=== PATIENT | male | born 1965 ===

== ENCOUNTER 2016-12-21 05:12 | Inpatient (IN) | payer OTHER ==
[~2016-12-21] VITALS: Ht 175.3 cm; Wt 93.0 kg
[2016-12-21] VITALS (12 sets, daily range): BP systolic 113–167; BP diastolic 71–95
[~2016-12-21 05:12] MED LIST: ASPIR 8181 MG ORAL; GABAPENTIN800 MG ORAL; HUMALOG100 UNIT/4 SUBQ; LANTUS SOL100 UNIT/1 SUBQ; LOSARTAN-HCTZ1 EAC2 ORAL; METFORMIN HCL1000 M3 PO; SIMVASTATIN20 MG ORAL; TENORMIN100 MG ORAL; TIZANIDINE HCL4 M2 ORAL
[2016-12-21] MEDS ORDERED: LR 1000ml 1,000 ML IVLG SCH (06:28)
[2016-12-21] MEDS ORDERED: Ketorolac 60mg Inj IV PRN (06:30)
[2016-12-21] MEDS ORDERED: Midazolam 2mg/2ml Inj IVP PRN (06:30)
[2016-12-21] MEDS ORDERED: Hydromorphone 0.5mg/0.5ml inj IVP PRN (06:30)
[2016-12-21] MEDS ORDERED: fentaNYL 100 mcg/2 mL IV PRN (06:30)
[2016-12-21] MEDS ORDERED: DiphenhydrAMINE 50mg/ml Inj IVP PRN (06:30)
[2016-12-21] MEDS ORDERED: oxyCODONE HCL/Acetaminophen 5/325mg ORAL PRN (06:30)
[2016-12-21] MEDS ORDERED: Atropine Inj 1mg/10ml Syr IV PRN (06:30)
[2016-12-21] MEDS ORDERED: Ketorolac 30mg Inj IV PRN (06:30)
[2016-12-21] MEDS ORDERED: Norco 5mg/325mg tab ORAL PRN (06:30)
[2016-12-21] MEDS ORDERED: Metoclopramide 10mg/2ml Inj IVP PRN ×2 (06:30→12:30)
[2016-12-21] MEDS ORDERED: Norco 7.5mg/325mg tab ORAL PRN (06:30)
[2016-12-21] MEDS ORDERED: LORazepam Inj 2mg/ml 1ml IV PRN (06:30)
[2016-12-21] MEDS ORDERED: Surgicel 4in x 8in TOPIC ONE (06:45)
[2016-12-21] MEDS ORDERED: Thrombin 5000 units TOPIC ONE (06:45)
--- NOTE | 2016-12-21 06:45 | Anethesia Preoperative Eval ---
Anesthesia Pre-op PMH/ROS General Date of Evaluation: Dec 21, 2016 Time of Evaluation: 07:11 Anesthesiologist: Marcelo ASA Score: ASA 3 Mallampati Score Class I : Soft palate, uvula, fauces, pillars visible Class II: Soft palate, uvula, fauces visible Class III: Soft palate, base of uvula visible Class IV: Only hard plate visible Mallampati Classification: Class II Surgeon: Kaitlynn/ Matthew Diagnosis: Back Pain Surgical Procedure: ALIF L4-5, L5-S1, PSF Anesthesia History: none Family History: no anesthesia problems Allergies: Uncoded Allergies: eggs (Allergy, Severe, gi upset, 12/21/16) Medications: see eMAR Past Medical History Cardiovascular: Reports: HTN, other - HL Endocrine: Reports: DM Other: obesity - BMI 32 PSxH Narrative: Colostomy, Umbilical Hernia repair Anesthesia Pre-op Phys. Exam Physician Exam Last Vital Signs Date Time Temp Pulse Resp B/P (MAP) Pulse Ox O2 Delivery O2 Flow Rate FiO2 12/21/16 05:44 97.9 72 18 130/83 97 Room Air Constitutional: NAD Neurologic: CN 2-12 intact Cardiovascular: RRR Respiratory: CTA Gastrointestinal: S/NT/ND Airway Exam Mallampati Score: Class II MO: limited ROM: limited Teeth: missing, intact Anesthesia Pre-op A/P Risk Assessment & Plan Assessment: ASA 3 Plan: Ga, BIS, Glidescope Status Change Before Surgery: No Pre-Antibiotics Dru Grams Ancef IV Given Within 1 Hr of Incision: Yes Time Given: 07:31 Maurisio Robertson MD Dec 21, 2016 06:45
[2016-12-21] MEDS ORDERED: Vancomycin 1gm inj IVPB ONE (06:46)
[2016-12-21] MEDS ORDERED: Lidocaine 1% Plain 30 ml INJ ONE ×2 (06:46→07:00)
[2016-12-21] MEDS ORDERED: Lidocaine 1% 10mg/ml/Epi 0.005mg/ml 30ml vial INJ ONE (06:46)
[2016-12-21] MEDS ORDERED: Heparin 5000 units/ml inj ONE (06:46)
[2016-12-21] MEDS ORDERED: Bupivacaine 0.5% Inj 30 ml vial INJ ONE (06:46)
[2016-12-21] MEDS ORDERED: Bacitracin 50000 Units Vial ONE (06:47)
[2016-12-21] MEDS ORDERED: Bupivacaine w/Epi 0.5% 30ml Vial INJ ONE (06:47)
--- NOTE | 2016-12-21 06:54 | Immediate Post-Op Evaluation ---
Immediate Post-Op Evalulation Immediate Post-Op Evalulation Procedure: ALIF L4-5, L5-S1, PSF Date of Evaluation: Dec 21, 2016 Time of Evaluation: 13:00 IV Fluids: 1500 LR Blood Products: 0 Estimated Blood Loss: 75 Urinary Output: 200 Blood Pressure Systolic: 143 Blood Pressure Diastolic: 86 Pulse Rate: 102 Respiratory Rate: 16 O2 Sat by Pulse Oximetry: 99 Temperature (Fahrenheit): 97.5 Pain Score (1-10): 3 Nausea: No Vomiting: No Complications 0 Patient Status: awake, reacts, patent, extubated, none Hydration Status: adequate Dru Grams Ancef IV Given Within 1 Hr of Incision: Yes Time Given: 07:31 Maurisio Robertson MD Dec 21, 2016 06:54
[2016-12-21] MEDS ORDERED: Dexamethasone 20mg/5ml IVP ONE (07:00)
[2016-12-21] MEDS ORDERED: Acetaminophen (Non formulary) 100 ML IV ONE (07:00)
[2016-12-21] MEDS ORDERED: Sterile Water Irrig 1000ml IRRIG ONE (07:00)
[2016-12-21] MEDS ORDERED: Propofol 1,000mg/ 100ml btl IV ONE (07:00)
[2016-12-21] MEDS ORDERED: Zemuron 50mg/5ml Inj IV ONE (07:00)
[2016-12-21] MEDS ORDERED: Lidocaine 1% MPF 10mg/ml 5ml ONE (07:00)
[2016-12-21] MEDS ORDERED: Neostigmine 1mg/ml 10ml Inj ONE (07:00)
[2016-12-21] MEDS ORDERED: Sodium Chloride 10ml vial INJ ONE (07:00)
[2016-12-21] MEDS ORDERED: Glycopyrrolate 0.2mg/ml 1ml Vial ONE (07:00)
[2016-12-21] MEDS ORDERED: NS Irrig 1000ml ONE (07:00)
[2016-12-21] MEDS ORDERED: ceFAZolin 1gm/50ml Premix 50 ML IV ONE (07:00)
[2016-12-21] MEDS ORDERED: LR 1000ml ONE (07:00)
[2016-12-21] MEDS ORDERED: fentaNYL 100 mcg/2 mL IV ONE (07:00)
--- NOTE | 2016-12-21 07:27 | Pre-Procedure Note/Attestation ---
Pre-Procedure Note/Attestation Complete Prior to Procedure Planned Procedure: not applicable Procedure Narrative: ALIF L4-5 L5-S1 Posterior peicle screw L4-L5-S1 Indications for Procedure Pre-Operative Diagnosis: Post Trauma Instability Lumbar Attestation I attest that I discussed the nature of the procedure; its benefits; risks and complications; and alternatives (and the risks and benefits of such alternatives ), prior to the procedure, with the patient (or the patient's legal customer counter representative). I attest that, if there was a reasonable possibility of needing a blood transfusion, the patient (or the patient's legal customer counter representative) was given the [facility] standardized written summary, pursuant to the Jasbir Chase Blood Safety Act ([place] Health and Safety Code # 1645, as amended). I attest that I re-evaluated the patient just prior to the surgery and that there has been no change in the patient's H&P, except as documented below: ROSINA GOODWIN Dec 21, 2016 07:27
[2016-12-21] MEDS ORDERED: Muri-Lube ONE (09:12)
--- NOTE | 2016-12-21 12:25 | Brief Operative Note ---
Immediate Post Operative Note Operative Note Pre-op Diagnosis: Post Trauma Instability Lumbar Procedure: correction deformity scar ssep high power magnification xray osteopromotive material interbody reconstruction, correction deformity internal fixation L4-L5, L5-S1 Posterior facet fusion L4-5, L5-S1 SSEP xray magnification pedicle screw L4-S1 Post-op Diagnosis: same as pre-op Findings: consistent w/pre-op dx studies Surgeon: Kaitlynn Espinoza [employer] Operator: Kathy Calderón Anesthesiologist: Marcelo Anesthesia: general Specimen: none Complications: none Condition: stable Fluids: anesthesia Estimated Blood Loss: minimal Drains: none Implant(s) used?: Yes ROSIAN CALDERÓN Dec 21, 2016 12:25
[2016-12-21] MEDS ORDERED: Naloxone 0.4mg/ml Inj IVP PRN (12:30)
[2016-12-21] MEDS ORDERED: oxyCODONE 5mg IR tab ORAL PRN (13:00)
[2016-12-21] MEDS ORDERED: Chloraseptic Spray 20mL Bottle ORAL PRN (13:00)
[2016-12-21] MEDS ORDERED: Rate Change PCA 1 Each MISC PRN (13:45)
[2016-12-21] MEDS ORDERED: PCA HYDROmorphone 1mg/ml 30 ML IV PRN (13:45)
[2016-12-21] MEDS: HYDROmorphone 1mg/ml Carpuject SUBQ PRN ×3 (15:32→23:07)
--- NOTE | 2016-12-21 15:42 | Cardiology Progress Note ---
Assessment/Plan Assessment/Plan dm htn hyperlipidemia hs of tobacco quit 3 yeears ago pain managmen dvt ppx accucheck iss npo until flatus then resume lnatus huolog and glucopahge bp med on hodl until needed [id number] Objective Last 24 Hour Vital Signs Date Time Temp Pulse Resp B/P (MAP) Pulse Ox O2 Delivery O2 Flow Rate FiO2 12/21/16 14:55 97.5 85 15 133/83 100 Nasal Cannula 3.0 12/21/16 14:35 17 12/21/16 14:19 20 12/21/16 14:15 88 15 135/87 100 Nasal Cannula 3.0 12/21/16 14:04 20 12/21/16 14:00 91 15 146/87 100 Nasal Cannula 3.0 12/21/16 13:49 20 12/21/16 13:45 90 15 152/80 100 Nasal Cannula 3.0 12/21/16 13:27 93 15 156/83 100 Nasal Cannula 3.0 12/21/16 13:20 96 18 164/95 100 Nasal Cannula 3.0 12/21/16 13:10 106 14 167/90 100 Simple Mask 6.0 12/21/16 13:00 106 17 155/87 100 Simple Mask 6.0 12/21/16 12:50 102 16 99 12/21/16 12:49 97.5 106 16 143/84 100 Simple Mask 6.0 12/21/16 05:44 97.9 72 18 130/83 97 Room Air HAYLEY MCCLURE Dec 21, 2016 15:42
--- NOTE | 2016-12-21 16:23 | 48 Hour Post Anesthesia Eval ---
Post Anesthesia Evaluation Procedure: ALIF L4-5, L5-S1, PSF Date of Evaluation: Dec 21, 2016 Time of Evaluation: 16:22 Blood Pressure Systolic: 133 0: 83 Pulse Rate: 85 Respiratory Rate: 15 Temperature (Fahrenheit): 97.5 O2 Sat by Pulse Oximetry: 100 Airway: patent Nausea: No Vomiting: No Pain Intensity: 2 Hydration Status: adequate Cardiopulmonary Status: Stable Mental Status/LOC: patient returned to baseline Follow-up Care/Observations: 0 Post-Anesthesia Complications: 0 Follow-up care needed: N/A Maurisio Robertson MD Dec 21, 2016 16:23
[2016-12-21] MEDS ORDERED: D5 1/2NS 1,000 ML IV SCH (16:30)
[2016-12-21] MEDS: NovoLOG Insulin Flexpen SUBQ SCH ×2 (17:00→20:28)
[2016-12-21] MEDS: ceFAZolin sod 1 GM in D5W 55 ML IV SCH ×2 (17:17→23:40)
[2016-12-21] MEDS: Docusate 100mg cap ORAL SCH (17:18)
[2016-12-21] MEDS: PCA HYDROmorphone 1mg/ml 30 ML IV PRN (17:55)
[2016-12-21] MEDS: PCA shift volume MISC SCH (19:00)
[2016-12-21] MEDS: Tamsulosin 0.4mg cap ORAL SCH (20:25)
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
[2016-12-22] VITALS: BP 117/67
--- NOTE | 2016-12-22 02:30 | Operative Note - Dictated ---
DATE OF OPERATION: 12/21/2016 VASCULAR SURGEON: Phil Castro M.D. SPINE SURGEON: Sabino Calderón M.D. PREOPERATIVE DIAGNOSIS: Degenerative disk disease. POSTOPERATIVE DIAGNOSIS: Degenerative disk disease. PROCEDURES PERFORMED: 1. Anterior retroperitoneal exposure of L4-L5 vertebral interspace. 2. Anterior retroperitoneal exposure of L5-S1 vertebral interspace. INDICATION: The patient is a very pleasant gentleman, who is seen prior to surgery. He has been scheduled for anterior fusion at L4-L5 and L5-S1. He has been made aware of the risks of surgery including the possibility of vascular injury and possible need for blood transfusion. He understands these risks and does wish to proceed. It should be noted that he has a prior history of a colostomy with perforated diverticulosis in the left lower quadrant. Therefore, there is an increased risk of retroperitoneal scarring that could prohibit safe exposure and this was discussed with him. DESCRIPTION OF FINDINGS: His previous vertical midline incision was used. A left retroperitoneal approach was used. There was no peritoneal or ureteral violation. We were able to mobilize the fascial repair at the previous colostomy site without difficulty. There was no retroperitoneal scarring around the iliac vessels and safe exposure of both L4-L5 and L5-S1 was able to be obtained with L5-S1 below the iliac bifurcation and L5-S1 above the iliac bifurcation. There is no vascular injury and there is no peritoneal or ureteral violation. Blood loss was less than 100 mL. DESCRIPTION OF PROCEDURE: The patient was taken to the operating room. General anesthesia was used. IV antibiotics were given. The patient's abdomen was prepped and draped. Appropriate time-out of procedures were taken. A vertical midline incision was made infraumbilically. The anterior fascia was incised longitudinally in the midline. A plane was identified posterior to the left rectus abdominis and developed posterolaterally towards the patient's left. This was done very caudally allowing a safe entrance to the retroperitoneum and we were able to mobilize the peritoneum and ureter towards the patient's right and expose the left iliac vessels. Superiorly, a little bit of mobilization required around the previous colostomy closure site. We did this without harming the peritoneum and we were able to get enough exposure to place the Omni retractor and expose both L4-L5 and L5-S1. Dissection was initially carried out inferior to the left iliac vein. Middle sacral artery and vein were ligated using bipolar electrocautery and divided. The Omni retractor was set in place to expose L5-S1. Once fluoroscopy confirmed the appropriate level, instrumentation and fusion performed by Dr. Calderón at that level is dictated separately. Retractor was then repositioned above the iliac bifurcation. Dissection was carried out lateral to the left common iliac artery. Overlying lymphatics were ligated with vascular clips. The iliolumbar vein was identified and encircled using 2-0 silk ties and then triply ligated proximally and distally with vascular clips. This allowed us to expose the anterior surface at L4-L5 by retracting the left iliac vessels towards the patient's right. Once again, the Omni retractor was set in place. Instrumentation was then performed at L4-L5 dictated separately. Upon completion, the peritoneum and ureter were intact. The iliac vessels were intact. The anterior fascia was then closed using #1 PDS in a running fashion and skin and subcutaneous tissue were closed with 3-0 Vicryl and 4-0 Monocryl in a running subcuticular closure technique. ESTIMATED BLOOD LOSS: Less than 100 mL. COMPLICATIONS: None. Phil Castro M.D. DR: MYRNA JOB#: [id number] CC:
[2016-12-22 04:00] VITALS: BP 108/77
[2016-12-22] MEDS: HYDROmorphone 1mg/ml Carpuject SUBQ PRN ×5 (04:57→20:22)
[2016-12-22] MEDS: NovoLOG Insulin Flexpen SUBQ SCH ×4 (06:20→20:19)
[2016-12-22] MEDS: PCA shift volume MISC SCH ×2 (07:00→19:16)
[2016-12-22] MEDS ORDERED: Bethanechol 25mg Tab ORAL PRN (07:15)
[2016-12-22] MEDS: oxyCODONE 15mg IR tab ORAL PRN (07:16)
[2016-12-22] MEDS: Docusate 100mg cap ORAL SCH ×3 (08:31→17:18)
[2016-12-22] MEDS: ceFAZolin sod 1 GM in D5W 55 ML IV SCH (08:31)
[2016-12-22 08:40] VITALS: BP 111/76
[2016-12-22 11:54] VITALS: BP 130/82
[2016-12-22 15:52] VITALS: BP 131/73
[2016-12-22] MEDS: PCA HYDROmorphone 1mg/ml 30 ML IV PRN (18:16)
[2016-12-22] MEDS: Tamsulosin 0.4mg cap ORAL SCH (20:10)
[2016-12-22 20:18] VITALS: BP 128/82
--- NOTE | 2016-12-22 21:45 | Progress Note ---
DATE: 12/22/2016 Acute Pain Management Physician Progress Note MEDICATIONS: Medication administration record reviewed. Medications include Flomax, Chloraseptic spray, Protonix, oxycodone, Zofran, Narcan, Dilaudid SUPPLY AND DISTRIBUTION MANAGER, Neurontin, Colace, Benadryl, Catapres, Soma, Mylanta, and Tylenol. LABORATORY STUDIES: No interval laboratory studies. VITAL SIGNS: Heart rate 109, afebrile, respirations 18, blood pressure 108/77, and oxygen saturation 92% on supplemental oxygen. I spent over 60 minutes in consultation. I discussed the case with the nurse RN, Deirdre, along with the surgeon, Dr. Calderón. The patient's was visiting the patient overnight. The patient has been fairly irritable and complained of severe pain throughout the night. He has received multiple doses of subcutaneous Dilaudid and I did increase the SUPPLY AND DISTRIBUTION MANAGER dosing to 0.3 mg with a 12-minute lockout. The increased dosing seems to have been more helpful. The patient had a fear of severe constipation using oxycodone. I did explain the patient that he already will be quite constipated from the very high dose of Dilaudid, which he has already used, nearly 15 mg in the past 12 hours via the SUPPLY AND DISTRIBUTION MANAGER. The patient will begin titrating in the oral oxycodone in combination with subcutaneous Dilaudid along with continued use of the SUPPLY AND DISTRIBUTION MANAGER Dilaudid unit. He states that the posterior incision wound is extremely painful. He states that his abdominal incision pain is painful and the patient also complains of severe irritation with the Benedict catheter. I did start the patient on Flomax last night. I explained to the patient that premature removal of the Benedict catheter may require reinserting of the Benedict catheter by the nursing team if he is unable to void urine. I will defer to Dr. Calderón and will plan the appropriate time to remove the Benedict catheter. The patient has been receiving Neurontin for many years from his outpatient primary doctors, along with tizanidine the muscle relaxant. The patient states that he has been off of opioid narcotics for quite sometime. He does state that emergency room visit have provided him Percocet in the past, but that has been a long time ago. The patient has been using considerable doses of opioid narcotics here in the hospital with his Dilaudid SUPPLY AND DISTRIBUTION MANAGER. The patient denies marijuana usage. He states that he stopped smoking over 2 years ago and denies illicit drug use. It seems that the patient seems to have had incorrect expectations for how large of a surgical procedure he was undergoing with multilevel lumbar spine surgery. With reassurance, the patient felt more comfortable that he is proceeding at a normal pace and should make spontaneous improvement with time. I will continue his current analgesic regimen. The patient already has hydrocodone and tizanidine at home. I will give a prescription of Percocet for outpatient usage. He still has no flatus, so he will continue NPO except for medications and ice chips, until there is better evidence for nondenominational of bowel function. He is on IV fluids for rehydration. I will defer his multiple comorbid medical conditions including hypertension and diabetes to Dr. Grissom. Rivas Simpson M.D. DR: TJ JOB#: [id number] CC:
--- NOTE | 2016-12-22 22:54 | Cardiology Progress Note ---
Assessment/Plan Assessment/Plan demetri follow tomorrow order BMP Subjective Subjective the patient did not have flatus yest remains NPO has intermittent tachcyardia has pain in his back Objective Last 24 Hour Vital Signs Date Time Temp Pulse Resp B/P (MAP) Pulse Ox O2 Delivery O2 Flow Rate FiO2 12/22/16 20:18 97.9 121 18 128/82 95 Room Air 12/22/16 20:00 16 12/22/16 16:00 18 12/22/16 15:52 98.7 110 20 131/73 98 Room Air 12/22/16 11:54 99.0 115 20 130/82 96 Room Air 12/22/16 08:40 98.2 114 20 111/76 93 Room Air 12/22/16 08:00 17 12/22/16 04:00 97.3 109 18 108/77 92 Room Air 12/22/16 04:00 17 12/22/16 00:00 16 12/22/16 00:00 99.2 116 18 117/67 96 Nasal Cannula 3.0 General Appearance: mild distress Neck: supple Rhythm: ST Cardiovascular: tachycardia Respiratory/Chest: decreased breath sounds Abdomen: soft Extremities: no swelling Intake and Output 12/22/16 12/23/16 19:00 07:00 Intake Total 1350 ml Output Total 550 ml Balance 800 ml IV Total 1350 ml Output Urine Total 550 ml Laboratory Tests Test 12/22/16 17:19 Urine Opiates Screen Negative (NEGATIVE) Urine Barbiturates Screen Negative (NEGATIVE) Phencyclidine (PCP) Screen Negative (NEGATIVE) Urine Amphetamines Screen Negative (NEGATIVE) Urine Benzodiazepines Screen Positive (NEGATIVE) H Urine Cocaine Screen Negative (NEGATIVE) Urine Marijuana (THC) Screen Negative (NEGATIVE) Microbiology Date/Time Source Procedure Growth Status 12/21/16 05:30 Nasal Nares MRSA Culture - Final NO METHICILLIN RESISTANT STAPH AUREUS... Complete LANETTE MOODY Dec 22, 2016 22:54
[2016-12-23] VITALS: BP 123/81
[2016-12-23] MEDS: oxyCODONE 15mg IR tab ORAL PRN ×3 (00:46→21:55)
[2016-12-23 04:00] VITALS: BP 124/69
[2016-12-23] MEDS: NovoLOG Insulin Flexpen SUBQ SCH ×4 (06:46→20:24)
[2016-12-23] MEDS ORDERED: PCA HYDROmorphone 1mg/ml 30 ML IV PRN (07:00)
[2016-12-23] MEDS: PCA shift volume MISC SCH ×2 (07:12→19:24)
[2016-12-23 08:00] VITALS: BP 112/70
[2016-12-23] MEDS: Docusate 100mg cap ORAL SCH ×2 (08:29→17:11)
[2016-12-23] MEDS ORDERED: 1/2 NS 1000ml IV ONE (10:53)
[2016-12-23 13:52] LABS: ANION GAP 9 (5-15); CALCIUM 8.1 MG/DL (8.5-10.1); CARBON DIOXIDE 26 MMOL/L (21-32); CHLORIDE 98 MMOL/L (98-107); CREATININE 0.8 MG/DL (0.55-1.30); GLOMERULAR FILTRATION RATE > 60 mL/min (>60); SODIUM 133 MMOL/L (136-145)
[2016-12-23 15:39] VITALS: BP 118/76
--- NOTE | 2016-12-23 16:15 | Progress Note ---
DATE: 12/23/2016 ACUTE PAIN MANAGEMENT PHYSICIAN PROGRESS NOTE MEDICATIONS: Medication administration record reviewed. Medications include Flomax, Chloraseptic, Protonix, Roxicodone, Zofran, Narcan, Dilaudid [employer]EL[employer]. medications Neurontin, Colace, Benadryl, Catapres, Soma, Urecholine, Mylanta, and Tylenol. OBJECTIVE: VITAL SIGNS: Afebrile, pulse 114, respirations 18, blood pressure 124/69, and oxygen saturation 95% on room air. LABORATORY STUDIES: Urine toxicology screen negative. Negative for illicit drugs. I spent over 60 minutes in consultation today. I discussed the case with the nurse RN, Braluio and the day nurse RN, Arabella. The patient has been improving considerably over the past 24 hours. 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 He has been tolerating the subcutaneous Dilaudid injections and also has been finally accepting the oxycodone pills without any nausea symptoms. The patient is hungry and states that he is passing flatus. When the surgeon, Dr. Calderón permits, we will advance his diet to liquids and test for tolerability. The patient remains on IV fluids for intravascular rehydration. The Benedict catheter was removed yesterday and he has been voiding urine without any difficulty. I will discontinue the Urecholine and Flomax as they no longer are needed. I will continue the [employer] Dilaudid unit for the time being. It may be possible to stop the [employer] tomorrow morning if he is able to transition over to subcutaneous Dilaudid and oral oxycodone pills primarily. The Soma pill will also help considerably. I did leave a prescription of Percocet for home usage and the patient already has tizanidine as a muscle relaxant for home usage. With the patient's history of heavy tobacco usage, I did encourage aggressive use of incentive spirometer. The patient will continue with physical therapy training later today. While he is in bed, he will continue with sequential compression pneumatic devices for DVT prophylaxis. Overall, the patient is proceeding well and as expected after his significant lumbar spine instrumentation surgery. By Dr. Grissom, we will continue to follow the patient's multiple medical issues including his labile diabetes. The patient will continue with the Neurontin 800 mg three times a day, which he has been taking chronically for many years, prescribed by his outpatient physician. Rivas Simpson M.D. DR: AMY JOB#: [id number] CC:
[2016-12-23] MEDS: metFORMIN 500mg tab ORAL SCH (17:11)
--- NOTE | 2016-12-23 19:47 | Cardiology Progress Note ---
Assessment/Plan Assessment/Plan restart inuslin injections and metformin Subjective Subjective feels better, is outo fo bed with physical therapy, tolerated diet, is concerned about his high blood sugar Objective Last 24 Hour Vital Signs Date Time Temp Pulse Resp B/P (MAP) Pulse Ox O2 Delivery O2 Flow Rate FiO2 12/23/16 16:00 18 12/23/16 15:39 98.2 104 18 118/76 95 Room Air 12/23/16 12:00 18 12/23/16 08:00 98.0 114 18 112/70 95 Room Air 12/23/16 08:00 16 12/23/16 04:00 16 12/23/16 04:00 98.7 114 18 124/69 95 Room Air 12/23/16 00:00 100.1 122 18 123/81 96 Room Air 12/23/16 00:00 16 12/22/16 20:18 97.9 121 18 128/82 95 Room Air 12/22/16 20:00 16 General Appearance: no apparent distress EENT: PERRL/EOMI Neck: supple Rhythm: NSR Cardiovascular: normal rate Respiratory/Chest: lungs clear Abdomen: distended Intake and Output 12/23/16 12/24/16 19:00 07:00 Intake Total 1850 ml Output Total 1100 ml Balance 750 ml Intake Oral 650 ml IV Total 1200 ml Output Urine Total 1100 ml Laboratory Tests Test 12/23/16 13:10 Sodium Level 133 MMOL/L (136-145) L Potassium Level 4.0 MMOL/L (3.5-5.1) Chloride Level 98 MMOL/L (98-107) Carbon Dioxide Level 26 MMOL/L (21-32) Anion Gap 9 (5-15) Blood Urea Nitrogen 8 mg/dL (7-18) Creatinine 0.8 MG/DL (0.55-1.30) Estimat Glomerular Filtration Rate > 60 mL/min (>60) Glucose Level 292 MG/DL (74-106) H Calcium Level 8.1 MG/DL (8.5-10.1) L Microbiology Date/Time Source Procedure Growth Status 12/21/16 05:30 Nasal Nares MRSA Culture - Final NO METHICILLIN RESISTANT STAPH AUREUS... Complete LANETTE MOODY Dec 23, 2016 19:47
[2016-12-23] MEDS: Levemir Flexpen SUBQ SCH (20:25)
[2016-12-24] VITALS: BP 126/78
[2016-12-24] MEDS: oxyCODONE 15mg IR tab ORAL PRN ×5 (02:14→23:16)
[2016-12-24 04:00] VITALS: BP 126/78
[2016-12-24] MEDS ORDERED: NovoLOG Insulin Flexpen SUBQ ONE (06:30)
[2016-12-24] MEDS: metFORMIN 500mg tab ORAL SCH ×2 (06:51→17:06)
[2016-12-24] MEDS: NovoLOG Insulin Flexpen SUBQ SCH ×4 (06:54→22:07)
[2016-12-24] MEDS: PCA shift volume MISC SCH (07:00)
[2016-12-24 08:00] VITALS: BP 121/83
[2016-12-24] MEDS: Docusate 100mg cap ORAL SCH ×2 (09:11→18:25)
[2016-12-24] MEDS ORDERED: Magnesium Citrate Liq Btl ORAL ONE ×2 (11:00→17:00)
[2016-12-24 12:00] VITALS: BP 127/65
[2016-12-24 16:00] VITALS: BP 115/71
--- NOTE | 2016-12-24 19:36 | Cardiology Progress Note ---
Assessment/Plan Assessment/Plan dm htn hyperlipidemia hs of tobacco quit 3 yeears ago pain managment dvt ppx accucheck note [id number] has had fl;auts awaits bm hoem meds on dc hoem Subjective Cardiovascular: Denies: chest pain, lightheadedness Respiratory: Denies: shortness of breath Gastrointestinal/Abdominal: Reports: constipated, Denies: abdominal pain Genitourinary: Denies: burning Objective Last 24 Hour Vital Signs Date Time Temp Pulse Resp B/P (MAP) Pulse Ox O2 Delivery O2 Flow Rate FiO2 12/24/16 16:00 16 12/24/16 16:00 97.5 98 17 115/71 97 Room Air 12/24/16 12:00 17 12/24/16 12:00 97.6 87 18 127/65 98 Room Air 12/24/16 08:00 18 12/24/16 08:00 97.1 97 18 121/83 97 Room Air 12/24/16 04:00 98.3 98 16 126/78 95 Room Air 12/24/16 04:00 17 12/24/16 00:00 16 12/24/16 00:00 98.3 98 16 126/78 95 Room Air 12/23/16 20:00 17 General Appearance: alert, other - walking Neck: no JVD Cardiovascular: normal rate, regular rhythm Respiratory/Chest: chest wall non-tender, lungs clear Abdomen: normal bowel sounds Extremities: no swelling Intake and Output 12/24/16 12/25/16 19:00 07:00 Output Total 300 ml Balance -300 ml Output Urine Total 300 ml # Voids 2 HAYLEY MCCLURE Dec 24, 2016 19:36
[2016-12-24 20:00] VITALS: BP 129/90
[2016-12-24] MEDS: Levemir Flexpen SUBQ SCH (22:06)
[2016-12-24] MEDS ORDERED: PERCOCET 10-321 EAC1 PO (23:53)
[2016-12-24] MEDS ORDERED: 1/2 NS 1000ml IV ONE (23:58)
--- NOTE | 2016-12-25 | Progress Note ---
DATE: 12/24/2016 ACUTE PAIN MANAGEMENT PHYSICIAN PROGRESS NOTE MEDICATIONS: Medication administration record reviewed. Medications include Chloraseptic spray, Protonix, oxycodone, Zofran, diabetic medications, Dilaudid, Neurontin, Colace, Benadryl, Catapres, Soma, Mylanta, and Tylenol. OBJECTIVE: VITAL SIGNS: Afebrile, pulse 98, respirations 16, blood pressure 115/71, and oxygen saturation 97% on room air. LABORATORY DATA: Laboratory studies from yesterday 12/23/2016 shows sodium 133, potassium 4.0, chloride 98, bicarbonate 26, BUN 8, creatinine 0.8, glucose 290, and calcium 8.1. I spent over 60 minutes in consultation today. I saw the patient at bedside with the nurse RN, Elizabet. I discussed the case with the hospital pharmacist and the charge nurse, RNEstephania. The patient has continued to improve clinically over the past 36 hours. He did start passing positive flatus and his diet was advanced. He has been tolerating advancing diet without any nausea symptoms. He is passing plenty of flatus and has been increasing his ambulation. He has been more consistent and compliant using his incentive spirometer, resultantly where he had no fevers over the past [address] Calderón did dose the patient with a full 300 mL bottle of magnesium citrate approximately 8 hours ago. The patient has not yet had a bowel movement and was re-dosed with another bottle of 300 mL approximately 1 hour ago. I would certainly expect the bowel movement to occur soon. The patient does admit to chronic constipation. At this point, I feel comfortable to discontinue his [employer]. He has been using his oxycodone 15 mg tablets with good analgesic effect. He also uses Soma. At home, the patient already had tizanidine and [place]. I did leave a prescription for Percocet quantity [address] Grissom has been following the patient's diabetic issues. The patient denies any shortness of breath or chest pain. I agree with Dr. Calderón for a discharge trial home after he had a bowel movement. Rivas Simpson M.D. DR: JOSEE JOB#: [id number] CC:
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
--- NOTE | 2016-12-28 08:30 | Operative Note - Dictated ---
DATE OF OPERATION: 12/21/2016 SURGEON: Sabino Calderón M.D., anterior. VASCULAR SURGEON: Phil Castro M.D., posterior. INDUSTRIAL TRAINER: AVIVA [place]. ANESTHESIA: General with intubation. ANESTHESIOLOGIST: Maurisio Robertson M.D. POSTOPERATIVE CONDITION: Stable. ESTIMATED BLOOD LOSS: Minimal. COMPLICATIONS: None. ADMITTING/PREOPERATIVE DIAGNOSIS: Lumbar spine instability, posttraumatic. POSTOPERATIVE DIAGNOSIS: Lumbar spine instability, posttraumatic. OPERATIVE PROCEDURE: Anterior interbody reconstruction, fusion L4-L5, L5 SSEP monitoring. Intraoperative x-rays interpreted by surgeon. High-power magnification dissection. Operation of the scar tissue. pedicle screw instrumentation L5-S1. SSEP monitoring. Screw stimulation. Facet fusion L4-L5, L5-S1. DESCRIPTION OF PROCEDURE: The patient was brought to the operating room and in the supine position, general anesthesia with intubation was induced. IV antibiotics, IV Decadron were administered 30 minutes prior to incision time. Anterior abdomen was sterilely prepped and draped free in usual sterile fashion. Please see additional report of Dr. Castro, Vascular Surgery, Dr. Calderón' res habilitation assistant, exposure and closure. Under sterile conditions, fluoroscopic imaging was obtained L5 and S1. The level of midline was marked. Annulotomy was performed under high-power magnification. A diskectomy to but not through the posterior longitudinal ligament. Cartilaginous endplates were resected subchondral bone and was not violated. Interposition grafting with the appropriate . Positioned appropriately. Internal fixation undertaken. Fluoroscopic guidance demonstrated excellent alignment and position. SSEP monitoring stable at all times. Graft was incorporated in fibrin glue. please see dictation of Dr. Castro. After the anterior abdomen was closed sterilely, following application of sterile bandage, the patient was carefully turned on the operating table to the prone position on the operating table and all instruments were removed from the operating room. New instruments were brought in and opened. Cross-table imaging was obtained demonstrating a correct level for incision placement. Level was marked. Back was sterilely prepped and draped free in usual sterile fashion. A longitudinal midline incision, retractor placed . Electrocautery dissection was carried through the subcutaneous tissue to the level of the fascia, which was incised midline was closed at the appropriate intervals. Fluoroscopic guidance was used to determine appropriate positions. With additional use of anatomic landmarks, pedicle screw instrumentation was undertaken of bilateral bilateral S1 pedicle with sequential probing of the pedicle for determination probing with ball tip probe of the cortical shoemaker, demonstrating integrity. SSEP monitoring stable at all times. Appropriate screw dimensions inserted, which was excellent. after copious irrigation was undertaken, bilateral L4-L5 and bilateral L5-S1. Interconnecting rods with appropriate dimensions with maintenance of lumbar lordosis position, which was excellent. Fluoroscopic guidance demonstrated excellent alignment position. Vancomycin powder was applied prior to the approximation sequentially at lumbodorsal fascia, subcutaneous tissue, dermis, and epidermis. Surgical strips applied. Sterile band was applied and maintained in place with tape. The patient was carefully turned from prone to supine position on the transport bed where he was awakened postoperative recovery in good stable condition. Sabino Calderón M.D. DR: OZZIE JOB#: [id number] CC:
== END 2016-12-24 23:59 | disposition home or self-care (01) | DRG 460 ==
LOC: SDSOVERFLO 05:12 → 3E 15:24
PROC: 0SG30AJ Fusion of Lumbosacral Joint with Interbody Fusion Device, Posterior Approach, Anterior Column, Open Approach (ICD-10-PCS; principal; 2016-12-21 07:00)
PROC: 0SG30A0 Fusion of Lumbosacral Joint with Interbody Fusion Device, Anterior Approach, Anterior Column, Open Approach (ICD-10-PCS; principal; 2016-12-21 07:00)
PROC: 0SG00A0 Fusion of Lumbar Vertebral Joint with Interbody Fusion Device, Anterior Approach, Anterior Column, Open Approach (ICD-10-PCS; principal; 2016-12-21 07:00)
PROC: 4A11X4G Monitoring of Peripheral Nervous Electrical Activity, Intraoperative, External Approach (ICD-10-PCS; principal; 2016-12-21 07:00)
PROC: 0SG00AJ Fusion of Lumbar Vertebral Joint with Interbody Fusion Device, Posterior Approach, Anterior Column, Open Approach (ICD-10-PCS; principal; 2016-12-21 07:00)
PROC: 0ST40ZZ Resection of Lumbosacral Disc, Open Approach (ICD-10-PCS; principal; 2016-12-21 07:00)
DX: M53.2X7 Spinal instabilities, lumbosacral region (principal); I10 Essential (primary) hypertension; M53.2X6 Spinal instabilities, lumbar region; E11.9 Type 2 diabetes mellitus without complications; E78.5 Hyperlipidemia, unspecified; G89.18 Other acute postprocedural pain; Z87.891 Personal history of nicotine dependence
CPT/HCPCS: 36415; 72020; 76001; 80048; 80300; 82962; 86850; 86900; 86901; 87081; 94003; 94150; J1815; J2405; J2710; S5561